=== PATIENT | female | born 2000 | race Two or more races ===

== ENCOUNTER 2020-08-24 13:05 | Emergency (ER) | payer OTHER ==
[~2020-08-24] VITALS: Ht 157.5 cm; Wt 53.5 kg
[2020-08-24] MEDS ORDERED: SYNTHROID50 MCG PO (13:35)
[2020-08-24] MEDS ORDERED: BACTRIM DS TAB1 EACH PO (17:46)
[2020-08-24] MEDS ORDERED: PYRIDIUM DS200 MG PO (17:46)
== END 2020-08-24 18:04 | disposition home or self-care (01) ==
LOC: ER 13:05
DX: N39.0 Urinary tract infection, site not specified (principal)